=== PATIENT | female | born 1950 | race Caucasian/White ===

== ENCOUNTER 2018-08-13 06:31 | Inpatient (IN) | payer MEDICARE, BC ==
[2018-08-06 14:18] LABS: CLARITY,URINE CLEAR (Clear); COLOR,URINE YELLOW (Yellow); GLUCOSE, URINE NEGATIVE (Neg); KETONES,URINE NEGATIVE (Neg); LEUKOCYTE ESTERASE ,URINE TRACE (Neg); NITRITES, URINE NEGATIVE (Neg); OCCULT BLOOD,URINE MODERATE (Neg); PROTEIN,URINE NEGATIVE (Neg); UROBILINOGEN,URINE 0.2 E.U/dL (0.2-1.0)
[2018-08-06 14:23] LABS: UA COLLECTION TYPE VOIDED
[2018-08-06 14:25] LABS: BACTERIA,URINE FEW /HPF (Neg); SQUAMOUS EPITHELIAL CELL,UR FEW /LPF (FEW); WBC,URINE 0-4 /HPF (0-4)
[2018-08-06 15:12] LABS: PRE OP PROTIME 9.9 SECONDS (9.0-12.0)
[2018-08-06 15:26] LABS: ALBUMIN 3.6 G/DL (3.4-5.0); ALKALINE PHOSPHATASE 84 IU/L (46-116); BLOOD UREA NITROGEN 17 MG/DL (7-18); CALCIUM 9.7 MG/DL (8.5-10.1); CHLORIDE 104 MMOL/L (99-107); CREATININE 0.85 MG/DL (0.40-0.90); PRE OP ALT 24 U/L (30-65); PRE OP ANION GAP 9 (8-16); PRE OP AST 13 U/L (10-37); PRE OP BILIRUB, TOTAL 0.5 MG/DL (0.0-1.0); PRE OP GLUCOSE 89 MG/DL (70-104); PRE OP POTASSIUM 4.1 MMOL/L (3.4-5.1); PRE OP SODIUM 140 MMOL/L (135-145); TOTAL CARBON DIOXIDE 27.1 MMOL/L (24-32); TOTAL PROTEIN 7.1 G/DL (6.4-8.2); eGFR 66 ML/MIN
[2018-08-06 15:32] LABS: BASOPHILS % (AUTO) 0.7 % (0-1); EOSINOPHILS # (AUTO) 0.2 X10'3 (0-0.9); EOSINOPHILS % (AUTO) 3.3 % (0-6); LYMPHOCYTES # (AUTO) 1.5 X10'3 (1.1-4.8); LYMPHOCYTES % (AUTO) 23.3 % (21-51); MEAN CORPUSCULAR HEMOGLOBIN 29.7 PG (27.0-31.0); MEAN CORPUSCULAR HGB CONC 33.1 % (33.0-36.5); MEAN CORPUSCULAR VOLUME 89.6 FL (78-98); MEAN PLATELET VOLUME 8.5 FL (7.4-10.4); MONOCYTES # (AUTO) 0.7 X10'3 (0-0.9); MONOCYTES % (AUTO) 10.9 % (2-12); NEUTROPHILS # (AUTO) 3.9 X10'3 (1.8-7.7); NEUTROPHILS % (AUTO) 61.8 % (42-75); PRE OP HEMATOCRIT 48.2 % (35.0-45.0); PRE OP PLATELET COUNT 220 X10'3 (140-440); RED BLOOD COUNT 5.39 X10'6 (4.20-5.60); RED CELL DISTRIBUTION WIDTH 14.2 % (11.5-14.5)
[2018-08-13] VITALS (19 sets, daily range): BP systolic 95–174; BP diastolic 50–95
[~2018-08-13] VITALS: Ht 172.7 cm; Wt 88.0 kg
[~2018-08-13 06:31] MED LIST: ASPI-1053 PO; ATEN100T PO; DOCUMENT DATE & TIME OF BETA-BLOCKER PO ONE; IRBE150T51 PO; LEVO75TA7 PO; LEVO88TA2 PO; LORA10TA7 PO; VANCOMYCIN INJ 1000 MG in NORMAL SALINE 250ml IV.SOLN IV ONE; acetaminophen 325mg tablet PO ONE; cefazolin/dext.iso 2gm/100 ML IV ONE; celeCOXIB 100mg capsule PO ONE; famotidine 20mg tablet PO ONE; gabapentin 300mg capsule PO ONE; metoclopramide 5 mg/ml inj IV ONE; oxyCODONE SR 10mg (sust. release) tab -2 tabs (20mg) PO ONE; ringers solution, lacted 1,000 ML IV SCH; scopolamine 1.5mg patch.TD72 TD ONE; tranexamic acid inj. 1,000 MG in normal saline 100ml IV soln 90 ML IV ONE
[2018-08-13] MEDS ORDERED: LIDOcaine 1% (10mg/ml) 2ml vial ONE (06:36)
[2018-08-13] MEDS ORDERED: acetaminophen 325mg tablet PO PRN (06:45)
[2018-08-13] MEDS ORDERED: ondansetron/PF 4mg/2ml inj IV PRN ×2 (06:45→09:35)
[2018-08-13] MEDS ORDERED: magnesium hydroxide 30ml (MOM) UD suspension PO PRN (06:45)
[2018-08-13] MEDS ORDERED: bisacodyl 10mg suppository rectal RC PRN (06:45)
[2018-08-13] MEDS ORDERED: diphenhydrAMINE 25mg capsule PO PRN ×2 (06:45)
[2018-08-13] MEDS ORDERED: HYDROmorphone 1 mg/ml syringe IV PRN ×2 (06:45)
[2018-08-13] MEDS ORDERED: ketorolac trometh. 30mg/ml inj. ONE (07:11)
[2018-08-13] MEDS ORDERED: vancomycin 1,000mg inj ONE (07:12)
[2018-08-13] MEDS ORDERED: epiNEPHrine 1 mg/ml inj ONE (07:12)
[2018-08-13] MEDS ORDERED: ROPIVAcaine 0.5% (5mg/ml) 30ml vial ONE (07:12)
[2018-08-13] MEDS ORDERED: cloNIDine hcl/PF 100mcg/ml inj ONE (07:12)
[2018-08-13] MEDS: levoTHYROXINE 88mcg tablet PO SCH (08:00)
[2018-08-13] MEDS: losartan 50mg tablet PO SCH (08:00)
[2018-08-13] MEDS: multivitamins, therapeutics tablet PO SCH (08:00)
[2018-08-13] MEDS ORDERED: propofol 10mg/ml 20ml vial IV ONE (08:21)
[2018-08-13] MEDS ORDERED: tetracaine 1% (10mg/ml) pres. free inj. ONE (08:23)
[2018-08-13] MEDS ORDERED: fentaNYL/PF 50MCG/1 ML 2ML syringe ONE (08:24)
[2018-08-13] MEDS ORDERED: MIDAZolam 1mg/ml 10ml vial ONE (08:24)
[2018-08-13] MEDS ORDERED: BUPIVAcaine/dex-water/PF 7.5 mg/ml 2ml ampul ONE (08:28)
[2018-08-13] MEDS: aspirin 325mg tablet PO SCH (08:30)
[2018-08-13] MEDS ORDERED: proCHLORperazine 10 MG/2 ml inj IV PRN (09:35)
[2018-08-13] MEDS ORDERED: meperidine/PF 25mg/ml syringe IV PRN ×3 (09:35)
[2018-08-13] MEDS ORDERED: morphine 4 MG/ML inj SYRINge IV PRN ×2 (09:35)
[2018-08-13] MEDS ORDERED: ringers solution, lacted 1,000 ML IV SCH (09:35)
[2018-08-13] MEDS ORDERED: tranexamic acid inj. 1,000 MG in normal saline 100ml IV soln 100 ML IV ONE ×2 (09:45→12:10)
[2018-08-13] MEDS ORDERED: tranexamic acid inj. 1,000 MG in normal saline 100ml IV soln 90 ML IV ONE ×2 (12:15→13:00)
[2018-08-13] MEDS: cefazolin/dext.iso 2gm/100ml 100 ML IV SCH (18:13)
[2018-08-13] MEDS: potassium cl 20mEq in 1/2 NS 1,000 ML IV SCH ×2 (18:14→22:41)
[2018-08-13] MEDS: ascorbic acid 500mg tablet PO SCH ×2 (20:00→20:05)
[2018-08-13] MEDS: atenolol 50mg tablet PO SCH (20:04)
[2018-08-13] MEDS: sennosides 8.6mg tablet PO SCH (20:05)
[2018-08-13] MEDS: gabapentin 300mg capsule PO SCH ×2 (20:16→21:00)
[2018-08-13] MEDS: HYDROcodone/acetaminophen 10/325mg tab PO PRN (20:20)
[2018-08-14] VITALS (7 sets, daily range): BP systolic 113–168; BP diastolic 55–85
[2018-08-14] MEDS: cefazolin/dext.iso 2gm/100ml 100 ML IV SCH ×2 (00:18→08:06)
[2018-08-14] MEDS: HYDROcodone/acetaminophen 10/325mg tab PO PRN ×4 (01:51→16:33)
[2018-08-14] MEDS: potassium cl 20mEq in 1/2 NS 1,000 ML IV SCH ×4 (03:51→22:41)
[2018-08-14 05:28] LABS: BASOPHILS % (AUTO) 0.5 % (0-1); EOSINOPHILS # (AUTO) 0.1 X10'3 (0-0.9); EOSINOPHILS % (AUTO) 2.3 % (0-6); HEMATOCRIT 43.3 % (35.0-45.0); HEMOGLOBIN 14.3 g/dl (12.0-16.0); LYMPHOCYTES # (AUTO) 0.9 X10'3 (1.1-4.8); LYMPHOCYTES % (AUTO) 15.9 % (21-51); MEAN CORPUSCULAR HGB CONC 33.1 % (33.0-36.5); MEAN CORPUSCULAR VOLUME 90.8 FL (78-98); MEAN PLATELET VOLUME 8.1 FL (7.4-10.4); MONOCYTES # (AUTO) 0.6 X10'3 (0-0.9); MONOCYTES % (AUTO) 10.7 % (2-12); NEUTROPHILS # (AUTO) 4.1 X10'3 (1.8-7.7); NEUTROPHILS % (AUTO) 70.6 % (42-75); PLATELET COUNT 182 X10'3 (140-440); RED BLOOD COUNT 4.76 X10'6 (4.20-5.60); RED CELL DISTRIBUTION WIDTH 14.1 % (11.5-14.5); WHITE BLOOD COUNT 5.8 X10'3 (4.5-11.0)
[2018-08-14 05:47] LABS: ANION GAP 4 (8-16); CHLORIDE 106 MMOL/L (99-107); POTASSIUM 3.7 MMOL/L (3.5-5.1); SODIUM 141 MMOL/L (135-145); TOTAL CARBON DIOXIDE 30.8 MMOL/L (24-32)
[2018-08-14] MEDS: losartan 50mg tablet PO SCH (08:03)
[2018-08-14] MEDS: levoTHYROXINE 88mcg tablet PO SCH (08:04)
[2018-08-14] MEDS: gabapentin 300mg capsule PO SCH ×3 (08:04→21:46)
[2018-08-14] MEDS: ascorbic acid 500mg tablet PO SCH ×2 (08:04→21:45)
[2018-08-14] MEDS: multivitamins, therapeutics tablet PO SCH (08:04)
[2018-08-14] MEDS: aspirin 325mg tablet PO SCH (08:05)
[2018-08-14] MEDS: sennosides 8.6mg tablet PO SCH (21:45)
[2018-08-14] MEDS: atenolol 50mg tablet PO SCH (21:45)
[2018-08-15 05:00] VITALS: BP 112/76
[2018-08-15] MEDS: HYDROcodone/acetaminophen 10/325mg tab PO PRN (05:31)
[2018-08-15 06:28] LABS: BASOPHILS % (AUTO) 0.2 % (0-1); EOSINOPHILS # (AUTO) 0.2 X10'3 (0-0.9); HEMATOCRIT 43.9 % (35.0-45.0); HEMOGLOBIN 14.7 g/dl (12.0-16.0); LYMPHOCYTES % (AUTO) 13.1 % (21-51); MEAN CORPUSCULAR HEMOGLOBIN 30.1 PG (27.0-31.0); MEAN CORPUSCULAR HGB CONC 33.5 % (33.0-36.5); MEAN CORPUSCULAR VOLUME 89.7 FL (78-98); MEAN PLATELET VOLUME 8.5 FL (7.4-10.4); MONOCYTES # (AUTO) 0.9 X10'3 (0-0.9); MONOCYTES % (AUTO) 11.8 % (2-12); NEUTROPHILS # (AUTO) 5.6 X10'3 (1.8-7.7); NEUTROPHILS % (AUTO) 72.9 % (42-75); PLATELET COUNT 182 X10'3 (140-440); RED BLOOD COUNT 4.89 X10'6 (4.20-5.60); WHITE BLOOD COUNT 7.7 X10'3 (4.5-11.0)
[2018-08-15] MEDS ORDERED: ASPI-1 PO (06:48)
[2018-08-15] MEDS: levoTHYROXINE 88mcg tablet PO SCH (08:06)
[2018-08-15] MEDS: losartan 50mg tablet PO SCH (08:06)
[2018-08-15] MEDS: multivitamins, therapeutics tablet PO SCH (08:06)
[2018-08-15] MEDS: ascorbic acid 500mg tablet PO SCH (08:06)
[2018-08-15] MEDS: gabapentin 300mg capsule PO SCH (08:06)
[2018-08-15] MEDS: aspirin 325mg tablet PO SCH (08:06)
[2018-08-15 10:00] VITALS: BP 133/57
== END 2018-08-15 12:25 | disposition home or self-care (01) | DRG 470 ==
LOC: PAS IN 06:31 → EDSTATUS 09:30 → ORTHO 4S 11:20
PROVIDERS: ADMIT Orthopaedic Surgery; ATTEND Orthopaedic Surgery
PROC: 0SR906Z Replacement of Right Hip Joint with Oxidized Zirconium on Polyethylene Synthetic Substitute, Open Approach (ICD-10-PCS; principal; 2018-08-13 08:21)
DX: M16.11 Unilateral primary osteoarthritis, right hip (principal); E03.9 Hypothyroidism, unspecified; I10 Essential (primary) hypertension; M54.5 Low back pain; I25.10 Atherosclerotic heart disease of native coronary artery without angina pectoris; Z96.653 Presence of artificial knee joint, bilateral; Z72.89 Other problems related to lifestyle; Z79.82 Long term (current) use of aspirin; Z79.899 Other long term (current) drug therapy
CPT/HCPCS: 36415; 71046; 72170; 80051; 80053; 81001; 84443; 85025; 85610; 85730; 86885; 86900; 86901; 87070; 87088; 97110; 97116; 97162; 97530; A4615; A7000; C1758; C1776; J0171; J0690; J0735; J1885; J2250; J2704; J2765; J2795; J3010; J3370; J3490; J7030; J7120; Q0163

== ENCOUNTER 2023-10-02 08:20 | Outpatient (CLI) | payer MEDICARE, BC ==
[2023-10-01 10:58] LABS: ALBUMIN 3.2 G/DL (3.4-5.0); ANION GAP 6 (8-16); BLOOD UREA NITROGEN 22 MG/DL (7-18); BUN/CREATININE RATIO 23.9 (10.0-20.0); CALCIUM 9.8 MG/DL (8.5-10.1); CHLORIDE 107 MMOL/L (99-107); CREATININE 0.92 MG/DL (0.40-0.90); GLUCOSE 78 MG/DL (70-104); POTASSIUM 4.1 MMOL/L (3.5-5.1); SODIUM 141 MMOL/L (135-145); TOTAL CARBON DIOXIDE 27.9 MMOL/L (24-32); eGFR 60 ML/MIN
[~2023-10-02 08:20] MED LIST changes: -ASPI-1053 PO; +ASPI-611 PO; +ATOR10TA PO; -DOCUMENT DATE & TIME OF BETA-BLOCKER PO ONE; +FURO40TA4 PO; -IRBE150T51 PO; +IRBE300T18 PO; +LEVO150T8 PO; -LEVO75TA7 PO; -LEVO88TA2 PO; +PANT40TA54 PO; +POTA-197 PO; -VANCOMYCIN INJ 1000 MG in NORMAL SALINE 250ml IV.SOLN IV ONE; -acetaminophen 325mg tablet PO ONE; -cefazolin/dext.iso 2gm/100 ML IV ONE; -celeCOXIB 100mg capsule PO ONE; -famotidine 20mg tablet PO ONE; -gabapentin 300mg capsule PO ONE; -metoclopramide 5 mg/ml inj IV ONE; -oxyCODONE SR 10mg (sust. release) tab -2 tabs (20mg) PO ONE; -ringers solution, lacted 1,000 ML IV SCH; -scopolamine 1.5mg patch.TD72 TD ONE; -tranexamic acid inj. 1,000 MG in normal saline 100ml IV soln 90 ML IV ONE
[2023-10-02] MEDS ORDERED: iohexol 300mg/ml 100ml inj. ONE (09:37)
[2023-10-02] MEDS ORDERED: IOHEXOL 12MG/ML oral solution 500 ML BOTTLE PO ONE (10:15)
== END 2023-10-02 23:59 | disposition home or self-care (01) ==
LOC: RAD 08:20
PROVIDERS: ATTEND Surgery
DX: C18.9 Malignant neoplasm of colon, unspecified (principal); K57.30 Diverticulosis of large intestine without perforation or abscess without bleeding; D25.9 Leiomyoma of uterus, unspecified; N28.1 Cyst of kidney, acquired; K76.89 Other specified diseases of liver; R16.0 Hepatomegaly, not elsewhere classified; I77.819 Aortic ectasia, unspecified site; M16.12 Unilateral primary osteoarthritis, left hip; M51.35 Other intervertebral disc degeneration, thoracolumbar region; Z96.641 Presence of right artificial hip joint; Z90.49 Acquired absence of other specified parts of digestive tract
CPT/HCPCS: 36415; 74177; 80048; J3490; Q9967